=== PATIENT | male | born 1960 | race Caucasian/White ===

== ENCOUNTER 2021-06-02 00:30 | Day surgery (SDC) | payer OTHER, SELFPAY ==
[2021-05-18 10:32] VITALS: BMI 26.2
--- NOTE | 2021-06-01 14:52 | PM.HPGS ---
History of Present Illness History of Present Illness Consent: Risks, benefits, and alternatives have been discussed and questions answered. Patient agrees to proceed with procedure. Chief complaint: GERD, family hx of colon ca, neoplasm screening Narrative: Lino Ulloa is a 61 year old male With a long history of gastroesophageal reflux disease. He had dilatation of an esophageal stricture about 3 years ago. He he also has a family history of colon cancer, for which reason he is undergoing colon cancer screening. Review of Systems Review of Systems: All systems reviewed & are unremarkable except as noted in HPI and below PMFSH Past Medical History Medical History Diabetes Social History Social History Smoking status: Never smoker Alcohol intake: current Substance use type: marijuana Living arrangements: with family Spiritual care concerns: No Meds Home Medications and Allergies Home Medications Medication Instructions Recorded Confirmed Type etodolac 400 mg PO BID 05/18/21 05/18/21 History insulin glargine [Lantus Solostar 24 unit SUBCUT QAM 05/18/21 05/18/21 History U-100 Insulin] metformin 1,000 mg PO BID 05/18/21 05/18/21 History omeprazole 40 mg PO QAM 05/18/21 05/18/21 History Allergies Allergy/AdvReac Type Severity Reaction Status Date / Time No Known Allergies Allergy Verified 06/02/21 08:57 Exam Const: General: alert Orientation/consciousness: patient oriented x3 Resp: Auscultation: clear to auscultation bilaterally Cardio: Rhythm: regular rhythm GI: GI Palp: Yes Soft to palpation and No Tenderness to palpation present (GI) Neuro: General: patient oriented x3 Assessment and Plan Assessment and plan (1) GERD (gastroesophageal reflux disease): Code(s): K21.9 - Gastro-esophageal reflux disease without esophagitis Status: Acute Assessment and Plan: EGD with possible biopsy or dilatation or cautery. (2) Colon cancer screening: Code(s): Z12.11 - Encounter for screening for malignant neoplasm of colon Status: Acute Assessment and Plan: Colonoscopy with possible biopsy or polypectomy or cautery or injection of substances.
[2021-06-02 08:58] VITALS: BP 133/89; PULSE 72; RESP 18; TEMP 36.1; O2SAT 98
[2021-06-02] MEDS: LACTATED RINGERS 1,000 ML 150 ML IV CONT (09:11)
[2021-06-02 09:12] LABS: Glucose Point of Care 136 mg/dl (65-105)
--- NOTE | 2021-06-02 09:23 | WPDANESEPPF ---
Anes - Initial Pre Proc Eval Procedure: Operation Date: 06/02/21 10:15 Proposed Procedures p Esophagogastroduodenoscopy & Screening Colonoscopy - Joselito Lacy MD Date/Time: 06/02/21 09:23 Surgeon: Joselito Lacy MD Pre Op Diagnosis: GERD, family hx of colon ca, neoplasm screening Patient Data Age: 61 Gender: M Height: 1.77 m Weight: 77.4 kg Last Vital Signs Temp 36.1 C L 06/02/21 08:58 Pulse 72 06/02/21 08:58 Resp 18 06/02/21 08:58 BP 133/89 06/02/21 08:58 Pulse Ox 98 06/02/21 08:58 Allergies Allergy/AdvReac Type Severity Reaction Status Date / Time No Known Allergies Allergy Verified 06/02/21 08:57 Home Medications Medication Instructions Recorded Confirmed Type etodolac 400 mg PO BID 05/18/21 05/18/21 History insulin glargine [Lantus Solostar 24 unit SUBCUT QAM 05/18/21 05/18/21 History U-100 Insulin] metformin 1,000 mg PO BID 05/18/21 05/18/21 History omeprazole 40 mg PO QAM 05/18/21 05/18/21 History Laboratory Tests 06/02/21 09:07 POC Capillary Glucose 136 mg/dl H mg/dl (65-105) Patient hx anesthesia problems: none Family hx anesthesia problems: none Results Review: All pre-operative results and documents have been reviewed as part of the pre-operative evaluation. [facility] Past Medical History Medical History (Updated 06/02/21 @ 09:23 by Valentín Cevallos MD) Diabetes Surgical History Surgical History (Updated 06/02/21 @ 09:25 by Valentín Cevallos MD) History of cholecystectomy Social History Social History Smoking status: Never smoker Alcohol intake: current Substance use type: marijuana Living arrangements: with family Spiritual care concerns: No Anes - Eval Final PreProcedure Day of Procedure 06/02/21 09:23 Patient weight: normal Heart: regular rate and rhythm Lungs: clear to auscultation Airway: Mallampati scale class II Neurological: alert and oriented Last oral intake: >/= 8 hours ASA classification: II Emergent: no Anesthetic plan: proceed Anesthesia type and monitoring: general GIVS and standard monitoring Results Review: All pre-operative results and documents have been reviewed as part of the pre-operative evaluation. Informed Consent: The patient's anesthetic plan and its attendant risks and benefits were discussed with the patient/family/POA. Questions were solicited and answers provided to the satisfaction of the patient/family/POA.
--- NOTE | 2021-06-02 10:31 | SUR.OPER ---
EGD START 1010, END 1016 COLONOSCOPY START 1024, END 1031
[2021-06-02 10:33] VITALS: BP 99/66; PULSE 68; RESP 18; O2SAT 98
[2021-06-02 10:38] LABS: Glucose Point of Care 113 mg/dl (65-105)
[2021-06-02 10:43] VITALS: BP 125/89; PULSE 70; RESP 20; O2SAT 100
[2021-06-02 10:53] VITALS: BP 134/80; PULSE 63; RESP 19; O2SAT 100
== END 2021-06-02 11:10 | disposition home or self-care (01) ==
PROVIDERS: PCP Internal Medicine; Visit Provider Internal Medicine Gastroenterology
PROC: 0DJ08ZZ Inspection of Upper Intestinal Tract, Via Natural or Artificial Opening Endoscopic (ICD-10-PCS; CPT 43235; principal; 2021-06-02 10:15)
DX: Z12.11 Encounter for screening for malignant neoplasm of colon (principal); Z80.0 Family history of malignant neoplasm of digestive organs; D17.5 Benign lipomatous neoplasm of intra-abdominal organs; R13.19 Other dysphagia; K22.2 Esophageal obstruction; K21.9 Gastro-esophageal reflux disease without esophagitis; Z79.4 Long term (current) use of insulin; E11.9 Type 2 diabetes mellitus without complications; F12.90 Cannabis use, unspecified, uncomplicated
CPT/HCPCS: 45378; 43239; 82948; C1726; J2001; J2704; J7120

== ENCOUNTER 2023-01-17 07:04 | Outpatient (CLI) | payer BC, SELFPAY ==
--- NOTE | ~2023-01-17 | NM_ITS ---
EXAM: NM gastric emptying study DATE: 01/17/2023 11:43 INDICATION: Vomiting, unspecified. TECHNIQUE: A gastric emptying study was performed using the methodology of Tata BHATT, et al. J Nucl Med 2007; 48:568-572. The patient was given a meal consisting of 2 scrambled eggs labeled with 1.039 mCi Tc-99m sulfur colloid, 2 slices of toast, two packages of jam, and approximately 120 mL of water . Simultaneous anterior and posterior 1-min images of the abdomen were obtained with the patient supi ne at multiple time points over a total period of 4 hours. The geometric mean of anterior and posteri or views was determined, and the percentage retention was calculated for each time point. COMPARISON: None. FINDINGS: Gastric retention of the radiotracer-labeled meal was 70%, 50%, and 9% at the 1-hour, 2-ho ur, and 4-hour time points, respectively. With this technique, apparent rapid gastric emptying is sug gested by <30% gastric retention at 1 hour. Delayed gastric emptying is defined by gastric retention of >90% at 1 hour, >60% retention at 2 hours, or >10% retention at 4 hours. IMPRESSION: 1. Normal gastric emptying. Reviewed, dictated and finalized at location A. IMPRESSION: 1. Normal gastric emptying.
== END 2023-01-17 07:05 | disposition home or self-care (01) ==
PROVIDERS: PCP Internal Medicine; Visit Provider Internal Medicine Gastroenterology
DX: R11.10 Vomiting, unspecified (principal)
CPT/HCPCS: 78264; A9541